=== PATIENT | female | born 1960 | race Hispanic/Latino ===

== ENCOUNTER 2018-09-16 07:27 | Day surgery (SDC) | payer BC ==
[2018-09-13 16:21] VITALS: BP 176/84
[2018-09-13 17:08] LABS: BASOPHILS % (AUTO) 0.5 % (0.0-5.0); EOSINOPHILS % (AUTO) 2.7 % (0.0-8.0); HEMATOCRIT 38.2 % (36-48); LYMPHOCYTES % (AUTO) 31.9 % (21.0-51.0); MEAN CORPUSCULAR HEMOGLOBIN 30.8 pg (27.0-33.0); MEAN CORPUSCULAR HGB CONC 33.4 g/dL (32.0-36.0); MEAN CORPUSCULAR VOLUME 92.5 fL (79-99); MONOCYTES % (AUTO) 7.9 % (3.0-13.0); NUCLEATED RED BLOOD CELLS 0.2 % (0.0-0.19); PLATELET COUNT (AUTO) 163 K/uL (130-400); RED BLOOD CELL COUNT(AUTO) 4.14 MIL/uL (4.00-5.50); RED CELL DISTRIBUTION WIDTH 13.9 % (11.0-15.5); WHITE BLOOD COUNT (AUTO) 7.1 K/uL (4.8-10.8)
[2018-09-13 17:22] LABS: CREATININE 0.7 mg/dL (0.5-1.5); POTASSIUM 4.1 mmol/L (3.5-5.1)
[~2018-09-16] VITALS: Ht 157.5 cm; Wt 130.5 kg
[2018-09-16] VITALS (15 sets, daily range): BP systolic 96–146; BP diastolic 40–75
[~2018-09-16 07:27] MED LIST: ADV250 IH; ALEN70TA10 PO; CLOB30CR5 TP; FLUT16H NASAL; IBUP-2070 PO; INSLAN SQ; LACTATED RINGERS 1000ML 1,000 ML IV SCH; LEVO125T11 PO; LIRA0.6P2 SQ; METF-446 PO; METO-391 PO; MONT10TA24 PO; OFLOXACIN OU; SIMV80TA91 PO
[2018-09-16] MEDS ORDERED: SODIUM CHLORIDE 0.9% 1000ML 1,000 ML IV ONE (08:16)
--- NOTE | 2018-09-16 08:31 | NUR ---
VALUABLES: CLOTHING, MEDICATIONS, READING GLASSES, AND CELL PHONE GIVEN TO BROTHER - BRINA SHIELDS
[2018-09-16] MEDS ORDERED: CA/D1TAB3 PO (08:40)
[2018-09-16] MEDS ORDERED: DEXA0.5E4 PO (08:40)
[2018-09-16] MEDS ORDERED: SUCCINYLCHOLINE CHLORIDE 20 MG/ML 10 ML VIAL ONE ×2 (08:50→08:51)
[2018-09-16] MEDS ORDERED: NEOSTIGMINE 5MG/5ML SYR IV ONE (08:52)
[2018-09-16] MEDS ORDERED: PROPOFOL 10 MG/ML 20ML VIAL IV ONE (08:52)
[2018-09-16] MEDS ORDERED: LIDOCAINE PF 2% 5ML ABBOJECT ONE (08:52)
[2018-09-16] MEDS ORDERED: DEXAMETHASONE SOD PHOSPHATE 10MG/ML 1ML VIAL ONE (08:52)
[2018-09-16] MEDS ORDERED: MIDAZOLAM HCL 1 MG/ML 2ML VIAL ONE (08:52)
[2018-09-16] MEDS ORDERED: ROCURONIUM 10MG/1ML SYR 10 MG/ML ML ONE (08:52)
[2018-09-16] MEDS ORDERED: ONDANSETRON HCL 4 MG/2 ML VIAL ONE (08:52)
[2018-09-16] MEDS ORDERED: GLYCOPYRROLATE 1 MG/5 ML SYRINGE ONE (08:52)
[2018-09-16] MEDS ORDERED: FENTANYL CITRATE PF 50 MCG/1 ML 2ML VIAL ONE (08:53)
--- NOTE | 2018-09-16 10:34 | NUR ---
juan pad with minimal pink discharge
--- NOTE | 2018-09-16 11:20 | NUR ---
ambulated to bathroom, voided, peripad with minimal pink discharge, tolerated well
== END 2018-09-16 11:25 | disposition home or self-care (01) ==
LOC: DAH 07:27
PROVIDERS: ATTEND Specialist
DX: N84.0 Polyp of corpus uteri (principal); E03.9 Hypothyroidism, unspecified; I10 Essential (primary) hypertension; Z98.890 Other specified postprocedural states; Z85.3 Personal history of malignant neoplasm of breast; E66.01 Morbid (severe) obesity due to excess calories; Z79.899 Other long term (current) drug therapy
CPT/HCPCS: 36415; 58120; 80048; 82948 ×2; 85025; 88305; A4351; J0330 ×2; J1100; J2001; J2250; J2405; J2704; J2710; J3010; J3490; J7030

== ENCOUNTER → 2020-03-03 | Outpatient (CLI) | payer BC ==
[~2020-03-03] MED LIST changes: +CA/D1TAB3 PO; -CLOB30CR5 TP; +DEXA0.5E4 PO; -LACTATED RINGERS 1000ML 1,000 ML IV SCH; -MONT10TA24 PO; +MONT10TA26 PO; -OFLOXACIN OU
== END | disposition home or self-care (01) ==
LOC: RAH 10:40
PROVIDERS: ATTEND Internal Medicine Gastroenterology
DX: R11.2 Nausea with vomiting, unspecified (principal); R14.0 Abdominal distension (gaseous); R19.7 Diarrhea, unspecified
CPT/HCPCS: 78264; A9541

== ENCOUNTER → 2020-05-31 | Outpatient (CLI) | payer BC ==
[~2020-05-31] MED LIST changes: -ALEN70TA10 PO; +ALEN70TA69 PO
--- NOTE | 2020-05-31 10:01 | NUR ---
BARIATRIC PRE-OP NUTRITION EDUCATION TIME: 9:20-9:50AM FLOR PROVIDED BARIATRIC PRE-OP NUTRITION EDUCATION. FLOR ESTABLISHED PROTEIN NEEDS WITH PT. FLOR ANSWERED ALL PT QUESTIONS. PT TO BEGIN PRE-OP DIET 1 WEEK PRIOR TO PROCEDURE. FLOR PROVIDED CONTACT INFORMATION TO PT FOR ADDITIONAL QUESTIONS OR CONCERNS. Addendum: 05/31/20 at [address] Amended: Links added.
== END | disposition home or self-care (01) ==
LOC: DTH 09:08
PROVIDERS: ATTEND Surgery
DX: E66.01 Morbid (severe) obesity due to excess calories (principal); E11.9 Type 2 diabetes mellitus without complications
CPT/HCPCS: 97802

== ENCOUNTER 2020-06-09 13:00 | Inpatient (IN) | payer OTHER ==
[~2020-06-09] VITALS: Ht 160 cm; Wt 127.2 kg
[~2020-06-09 13:00] MED LIST changes: -CA/D1TAB3 PO; -DEXA0.5E4 PO; -IBUP-2070 PO; -INSLAN SQ; -LEVO125T11 PO; -LIRA0.6P2 SQ; -METO-391 PO; -SIMV80TA91 PO
[2020-06-09 14:31] LABS: BASOPHILS % (AUTO) 0.6 % (0.0-5.0); EOSINOPHILS % (AUTO) 1.5 % (0.0-8.0); HEMATOCRIT 40.2 % (36-48); LYMPHOCYTES % (AUTO) 25.4 % (21.0-51.0); MEAN CORPUSCULAR HEMOGLOBIN 29.4 pg (27.0-33.0); MEAN CORPUSCULAR HGB CONC 32.8 g/dL (32.0-36.0); MEAN CORPUSCULAR VOLUME 89.5 fL (79-99); MONOCYTES % (AUTO) 7.9 % (3.0-13.0); NEUTROPHILS % (AUTO) 64.2 % (40.0-77.0); PLATELET COUNT (AUTO) 190 K/uL (130-400); RED BLOOD CELL COUNT(AUTO) 4.49 MIL/uL (4.00-5.50); RED CELL DISTRIBUTION WIDTH 13.8 % (11.0-15.5); WHITE BLOOD COUNT (AUTO) 8.1 K/uL (4.8-10.8)
[2020-06-09 14:40] LABS: CREATININE 0.8 mg/dL (0.5-1.5); POTASSIUM 4.4 mmol/L (3.5-5.1)
[2020-06-09 14:43] LABS: INR 0.98 (0.85-1.15); PARTIAL THROMBOPLASTIN TIME 28.4 SEC (26.3-35.5); PROTHROMBIN TIME 10.6 SEC (9.6-11.6)
--- NOTE | 2020-06-11 12:13 | NUR ---
ABNORMAL EKG DR. MOE MADE AWARE OF EKG. NO NEW ORDERS RECEIVED. OK TO PROCEED WITH PLANNED PROCEDURE.
[2020-06-11] MEDS ORDERED: SODIUM CHLORIDE 0.9% 1000ML 1,000 ML IV SCH (13:00)
[2020-06-11 13:53] VITALS: BP 210/92
[2020-06-11] MEDS ORDERED: LETR2.5T7 PO (15:22)
[2020-06-11] MEDS ORDERED: METO50TA18 PO (15:22)
[2020-06-11] MEDS ORDERED: CETI10CA5 PO (15:22)
[2020-06-11] MEDS ORDERED: DEXA0.5E4 PO (15:22)
[2020-06-11] MEDS ORDERED: INSU100V37 SQ (15:22)
[2020-06-11] MEDS ORDERED: LEVO137T2 PO (15:22)
[2020-06-11] MEDS ORDERED: INSU100I60 SQ (15:22)
[2020-06-11] MEDS ORDERED: LATA2.5D2 OP (15:22)
[2020-06-11] MEDS ORDERED: LOSA100T58 PO (15:22)
[2020-06-12] MEDS: CEFAZOLIN SODIUM 1 GM VIAL IVP SCH (06:00)
[2020-06-14] VITALS (23 sets, daily range): BP systolic 129–172; BP diastolic 50–82
[2020-06-14] MEDS: CEFAZOLIN SODIUM 1 GM VIAL IVP SCH ×4 (06:00→18:47)
[2020-06-14] MEDS ORDERED: SUCCINYLCHOLINE 200MG/10ML SYR ONE (07:38)
[2020-06-14] MEDS ORDERED: LIDOCAINE PF 2% 5ML ABBOJECT ONE (07:38)
[2020-06-14] MEDS ORDERED: PROPOFOL 10 MG/ML 20ML VIAL IV ONE (07:38)
[2020-06-14] MEDS ORDERED: FENTANYL CITRATE PF 50 MCG/1 ML 2ML VIAL ONE (07:38)
[2020-06-14] MEDS ORDERED: ROCURONIUM 10MG/1ML SYR 10 MG/ML ML ONE (07:38)
[2020-06-14] MEDS ORDERED: BUPIVACAINE/PF 0.5% 30ML VIAL ONE (07:58)
[2020-06-14] MEDS ORDERED: EPHEDRINE SULFATE 50 MG/ML AMPULE ONE (08:36)
[2020-06-14] MEDS ORDERED: GLYCOPYRROLATE 1 MG/5 ML SYRINGE ONE (10:58)
[2020-06-14] MEDS ORDERED: NEOSTIGMINE 5MG/5ML SYR IV ONE (10:58)
[2020-06-14] MEDS ORDERED: ONDANSETRON HCL 4 MG/2 ML VIAL ONE (11:03)
[2020-06-14] MEDS ORDERED: MEPERIDINE-PF 25 MG/ML SYG ONE ×2 (11:05→11:43)
[2020-06-14] MEDS ORDERED: ONDANSETRON HCL 4 MG/2 ML VIAL IVP PRN (11:30)
[2020-06-14] MEDS ORDERED: KETOROLAC TROMETHAMINE 30MG/ML IM PRN (11:30)
[2020-06-14] MEDS: ENOXAPARIN SODIUM 30 MG/0.3 ML SQ SCH ×2 (12:06→20:35)
[2020-06-14] MEDS ORDERED: GLUCAGON 1MG KIT 1 MG ML IM PRN (12:30)
[2020-06-14] MEDS: LACTATED RINGERS 1000ML 1,000 ML IV SCH ×2 (12:30→18:47)
[2020-06-14] MEDS ORDERED: DEXTROSE 50%-WATER 50 ML DISP.SYRIN IV PRN (12:30)
[2020-06-14] MEDS: MORPHINE SULFATE 4 MG/1ML SYG IVP PRN ×2 (13:23→17:21)
[2020-06-14] MEDS ORDERED: NON-FORMULARY MEDICATION 1 EACH (Metformin HCl 1,000 MG) PO SCH (17:00)
[2020-06-14] MEDS: METFORMIN HCL 500 MG TABLET PO SCH (17:00)
[2020-06-14] MEDS: INSULIN HUMULIN R 100 UNIT/ML 3ML SQ SCH ×2 (17:10→20:34)
[2020-06-14] MEDS: FAMOTIDINE/PF 20 MG/2 ML VIAL IV SCH (20:24)
[2020-06-14] MEDS: LEVOTHYROXINE 25 MCG TABLET PO SCH (20:31)
[2020-06-14] MEDS: MONTELUKAST SODIUM 10 MG TAB PO SCH (20:31)
[2020-06-14] MEDS ORDERED: LEVOTHYROXINE SODIUM 137 MCG PO SCH (21:00)
[2020-06-15] VITALS (7 sets, daily range): BP systolic 147–193; BP diastolic 56–76
[2020-06-15] MEDS: LACTATED RINGERS 1000ML 1,000 ML IV SCH ×3 (03:30→19:30)
[2020-06-15 03:52] LABS: BASOPHILS % (AUTO) 0.3 % (0.0-5.0); EOSINOPHILS % (AUTO) 0.1 % (0.0-8.0); HEMATOCRIT 35.4 % (36-48); LYMPHOCYTES % (AUTO) 15.3 % (21.0-51.0); MEAN CORPUSCULAR HEMOGLOBIN 29.3 pg (27.0-33.0); MEAN CORPUSCULAR HGB CONC 33.1 g/dL (32.0-36.0); MEAN CORPUSCULAR VOLUME 88.7 fL (79-99); MONOCYTES % (AUTO) 8.5 % (3.0-13.0); NEUTROPHILS % (AUTO) 75.5 % (40.0-77.0); PLATELET COUNT (AUTO) 153 K/uL (130-400); RED BLOOD CELL COUNT(AUTO) 3.99 MIL/uL (4.00-5.50); RED CELL DISTRIBUTION WIDTH 13.3 % (11.0-15.5); WHITE BLOOD COUNT (AUTO) 11.5 K/uL (4.8-10.8)
[2020-06-15 03:56] LABS: CREATININE 0.7 mg/dL (0.5-1.5)
[2020-06-15] MEDS: INSULIN HUMULIN R 100 UNIT/ML 3ML SQ SCH ×4 (07:30→21:00)
[2020-06-15] MEDS: METFORMIN HCL 500 MG TABLET PO SCH ×2 (08:00→17:00)
[2020-06-15] MEDS: FAMOTIDINE/PF 20 MG/2 ML VIAL IV SCH ×2 (09:02→19:45)
[2020-06-15] MEDS: METOPROLOL TARTRATE 50 MG TAB PO SCH (09:02)
[2020-06-15] MEDS: ENOXAPARIN SODIUM 30 MG/0.3 ML SQ SCH ×2 (09:03→19:46)
--- NOTE | 2020-06-15 10:44 | NUR ---
[facility] CM met with pt and brother in room discussed dc plans. Pt is independent prior to admission, lives at home with parents, brother, and sister in law. Pt has a walker, shower chair, nebulizer machine, uses [facility] for med, 1 small step inside the house. Feels safe to go back home, still drives, family able to assist with transportation and needs as necessary. DC plan to home once stable. CM to continue to follow up. Addendum: 06/15/20 at 1046 by OTILIO LAM LVN CM Amended: Links added.
[2020-06-15] MEDS: CEFAZOLIN SODIUM 1 GM VIAL IVP SCH ×3 (11:30→19:45)
--- NOTE | 2020-06-15 14:00 | NUR ---
NOTE SPOKE TO PATIENT AND DAUGHTER AT HER SIDE. I ASKED THEM IF A DECISION HAS BEEN MADE ABOUT PATIENT GETTING A PACEMAKER AND THEY HAVE NOT DECIDED. DR SCHMIDT CALLED ME EARLIER AND ASKED TO CHECK WITH THEM ABOUT THIS MATTER SINCE HE HAD APPROACHED THEM YESTERDAY WITH THE RECOMMENDATIONS FOR PACEMAKER PLACEMENT, JUST LIKE THEY HAD DONE ON PREVIOUS ADMISSION AND THEY HAD REFUSED AT THAT TIME WELL. FAMILY THAT WAS PRESENT YESTERDAY TOLD DR SCHMIDT THEY HAD TO DISCUSS THIS WITH THE REST OF THE FAMILY. DAUGHTER AT THE BEDSIDE SEEMS TO HAVE A LOT OF QUESTIONS WHICH I TOLD HER NEEDED TO BE ADDRESSED WITH DR SCHMIDT. SHE DOES NOT THINK PATIENT NEED PACEMAKER. INSISTS PATIENT IS EXPERIENCING SEIZURES. I TOLD HER SHE NEEDED TO BE HERE TO SPEAK TO DR SCHMIDT OR PRIMARY DOCTOR TO HAVE THESE QUESTIONS ANSWERED. Addendum: 06/15/20 at 1648 by TORRIE ARIAS RN NOTE ENTERED IN WRONG PATIENT
--- NOTE | 2020-06-15 16:30 | NUR ---
NOTE PATIENT HAS REMAINED STABLE WITHOUT DISTRESS OR SOB. BBS CLEAR. USING HER INCENTIVE SPIROMETRY. SAVANNA LUGO WITH DR MARTE HAD COME IN AND DISCHARGED AFTER DINNER BUT DR MARTE CHANGED HIS MIND AND SHE IS STAYING UNTIL TOMORROW.
[2020-06-15] MEDS: MONTELUKAST SODIUM 10 MG TAB PO SCH (19:46)
[2020-06-15] MEDS: LEVOTHYROXINE 25 MCG TABLET PO SCH (19:46)
[2020-06-15] MEDS: MORPHINE SULFATE 4 MG/1ML SYG IVP PRN (19:47)
[2020-06-15] MEDS ORDERED: LEVOTHYROXINE 112 MCG TABLET PO SCH (21:00)
[2020-06-16] MEDS: CEFAZOLIN SODIUM 1 GM VIAL IVP SCH ×2 (02:54→14:24)
[2020-06-16] MEDS: LACTATED RINGERS 1000ML 1,000 ML IV SCH ×2 (02:54→11:30)
[2020-06-16 03:36] VITALS: BP 153/67
[2020-06-16] MEDS: INSULIN HUMULIN R 100 UNIT/ML 3ML SQ SCH ×3 (05:38→16:30)
[2020-06-16 08:00] VITALS: BP 148/75
[2020-06-16] MEDS: METFORMIN HCL 500 MG TABLET PO SCH ×2 (08:00→17:00)
[2020-06-16] MEDS: FAMOTIDINE/PF 20 MG/2 ML VIAL IV SCH (08:47)
[2020-06-16] MEDS: ENOXAPARIN SODIUM 30 MG/0.3 ML SQ SCH (08:51)
[2020-06-16] MEDS: METOPROLOL TARTRATE 50 MG TAB PO SCH (08:52)
[2020-06-16 11:19] VITALS: BP 147/68
[2020-06-16 16:46] VITALS: BP 182/72
[2020-06-16] MEDS ORDERED: ACETAMINOPHEN 325 MG TAB PO ONE (17:30)
[2020-06-16] MEDS ORDERED: ACETAMINOPHEN 325 MG TAB ONE (17:33)
--- NOTE | 2020-06-16 19:00 | NUR ---
DISCHARGE ORDERS IN CHART. DISCHARGE INSTRUCTIONS COMPLETED IN THE ROOM WITH PT AND VISITOR AT SIDE. EMPHASIS ON DX, POST OP CARE ORDERED BY DR MARTE INCLUDING DIET, ACTIVITY, INCISION CARE, AND HYGIENE. PT ALSO EDUCATED TO S/S TO MONITOR FOR AND WHEN TO SEEK EMERGENCY CARE VS DIAL 911. SHE IS TO FOLLOW UP WITH DR MARTE ON THURSDAY 06/21, WILL NEED TO CALL IN AM TO SCHEDULE TIME. NEW RX FOR TYLENOL ES, GABAPENTIN, ZOFRAN, AND PANTOPRAZOLE REVIEWED WITH PT, INCLUDING ROUTE, PURPOSE, FREQUENCY, AND DURATION OF MEDICATION. PIV REMOVED BY NURSE CHRISTIANSEN. HEMOSTASIS ACHIEVED. PT WHEELED TO FRONT LOBBY BY [facility] STAFF FOR TRANSPORT HOME VIA PRIVATE CAR. PT IN STABLE CONDITION AT TIME OF DISCHARGE. ACCOMPANIED BY .
== END 2020-06-16 19:00 | disposition home or self-care (01) | DRG 621 ==
LOC: EDSTATUS 13:00 → DAHIP 06-14 06:53 → 3AH 06-14 12:44
PROVIDERS: ADMIT Surgery; ATTEND Surgery
PROC: 0DB64Z3 Excision of Stomach, Percutaneous Endoscopic Approach, Vertical (ICD-10-PCS; principal; 2020-06-14 08:11)
PROC: 0D164ZA Bypass Stomach to Jejunum, Percutaneous Endoscopic Approach (ICD-10-PCS; 2020-06-14 08:11)
DX: E66.01 Morbid (severe) obesity due to excess calories (principal); K74.60 Unspecified cirrhosis of liver; E11.9 Type 2 diabetes mellitus without complications; E03.9 Hypothyroidism, unspecified; I10 Essential (primary) hypertension; J30.2 Other seasonal allergic rhinitis; Z20.828 Contact with and (suspected) exposure to other viral communicable diseases; E78.00 Pure hypercholesterolemia, unspecified; Z68.42 Body mass index [BMI] 45.0-49.9, adult; Z90.49 Acquired absence of other specified parts of digestive tract; Z83.3 Family history of diabetes mellitus; Z82.49 Family history of ischemic heart disease and other diseases of the circulatory system
CPT/HCPCS: 36415; 43235; 71045; 80048; 82948; 85025; 85610; 85730; 86850; 86900; 86901; 93005; 94760; G0378; J0330; J0690; J1650; J1815; J2001; J2175; J2270; J2405; J2704; J2710; J3010; J3490; J7030; J7120; U0003

== ENCOUNTER 2023-07-09 08:13 | Day surgery (SDC) | payer OTHER ==
[~2023-07-09] VITALS: Ht 154.9 cm; Wt 94.3 kg
[~2023-07-09 08:13] MED LIST changes: +ALBU10.7 IH; -ALEN70TA69 PO; +LATA2.5D14 OP; +LETR2.5T7 PO; +LEVO137T2 PO; +LOSA100T59 PO; -METF-446 PO; +METO50TA18 PO; -MONT10TA26 PO
[2023-07-09 09:00] VITALS: BP 149/61; PULSE 60; RESP 15
[2023-07-09] MEDS ORDERED: PROPOFOL 10 MG/ML 20ML VIAL IV ONE (09:59)
[2023-07-09] MEDS ORDERED: HYDR25TA PO (10:01)
[2023-07-09] MEDS ORDERED: SODIUM TETRADECYL SULFATE 30 MG/ML 2 ML VIAL IV ONE (10:30)
== END 2023-07-09 10:53 | disposition home or self-care (01) ==
LOC: DAH 08:13
PROVIDERS: ATTEND Surgery
DX: K21.9 Gastro-esophageal reflux disease without esophagitis (principal); R13.10 Dysphagia, unspecified; I10 Essential (primary) hypertension; E11.9 Type 2 diabetes mellitus without complications; Z79.899 Other long term (current) drug therapy; Z98.84 Bariatric surgery status; Z98.890 Other specified postprocedural states; Z90.49 Acquired absence of other specified parts of digestive tract; Z82.49 Family history of ischemic heart disease and other diseases of the circulatory system; Z83.3 Family history of diabetes mellitus
CPT/HCPCS: 82948; 43236; J2704; J3490; A4620; A4215 ×2; A4223; A7002; A4222; A4221; A4663; J7030; A4606

== ENCOUNTER 2023-08-06 06:40 | Day surgery (SDC) | payer OTHER ==
[~2023-08-06] VITALS: Ht 154.9 cm; Wt 94.3 kg
[~2023-08-06 06:40] MED LIST changes: +HYDR25TA PO
[2023-08-06 07:10] VITALS: BP 152/46; PULSE 50; RESP 16
[2023-08-06] MEDS ORDERED: PHENYLEPHRINE HCL 10 MG/ML 1ML VIAL IV ONE (07:40)
[2023-08-06] MEDS ORDERED: SODIUM TETRADECYL SULFATE 30 MG/ML 2 ML VIAL IV ONE (08:00)
[2023-08-06] MEDS ORDERED: PROPOFOL 10 MG/ML 20ML VIAL IV ONE ×2 (08:08→08:09)
[2023-08-06] MEDS ORDERED: GLYCOPYRROLATE 0.2 MG/ML 5 ML VIAL ONE (08:09)
[2023-08-06] MEDS ORDERED: CETI10TA57 PO (08:10)
[2023-08-06] MEDS ORDERED: METO25TA6 PO (08:10)
[2023-08-06] MEDS ORDERED: LEVO112C4 PO (08:10)
[2023-08-06] MEDS ORDERED: FENTANYL CITRATE PF 50 MCG/1 ML 2ML VIAL ONE (08:10)
[2023-08-06] MEDS ORDERED: 0.9%NACL 1000ML 1,000 ML IV ONE (09:10)
[2023-08-06 09:27] VITALS: BP 138/53; PULSE 60; RESP 16
== END 2023-08-06 08:53 | disposition home or self-care (01) ==
LOC: DAH 06:40 → ENDO 06:40
PROVIDERS: ATTEND Surgery
DX: K21.9 Gastro-esophageal reflux disease without esophagitis (principal); R13.10 Dysphagia, unspecified; J45.909 Unspecified asthma, uncomplicated; I10 Essential (primary) hypertension; E07.9 Disorder of thyroid, unspecified; E11.9 Type 2 diabetes mellitus without complications; Z98.84 Bariatric surgery status; Z82.49 Family history of ischemic heart disease and other diseases of the circulatory system; Z80.9 Family history of malignant neoplasm, unspecified; Z83.3 Family history of diabetes mellitus; Z83.79 Family history of other diseases of the digestive system; Z79.84 Long term (current) use of oral hypoglycemic drugs; Z79.51 Long term (current) use of inhaled steroids; Z79.890 Hormone replacement therapy; Z79.899 Other long term (current) drug therapy; Z98.890 Other specified postprocedural states
CPT/HCPCS: 82948; 43236; J3010; J7030 ×2; J2704; J3490 ×2; J2371; A4620; A4215 ×2; A4223; A4657; A7002; A4222; A4221; A4663; A4216; A4606

== ENCOUNTER 2023-09-20 10:42 | Emergency (ER) | payer OTHER ==
[~2023-09-20] VITALS: Ht 160 cm; Wt 89.8 kg
[~2023-09-20 10:42] MED LIST changes: +CETI10TA57 PO; +LEVO112C4 PO; -LEVO137T2 PO; +METO25TA6 PO; -METO50TA18 PO
[2023-09-20] MEDS ORDERED: IBUP-2077 PO (11:39)
[2023-09-20] MEDS ORDERED: CLIN-141 PO (11:39)
[2023-09-20] MEDS ORDERED: KETOROLAC 60 MG VIAL (30MG/ML) IM ONE (12:00)
[2023-09-20 12:29] VITALS: BP 165/70; PULSE 60; RESP 18; O2SAT 99
== END 2023-09-20 12:30 | disposition home or self-care (01) ==
LOC: EDH 10:42
DX: K02.9 Dental caries, unspecified (principal); K08.89 Other specified disorders of teeth and supporting structures; Z79.51 Long term (current) use of inhaled steroids; Z79.811 Long term (current) use of aromatase inhibitors; Z79.899 Other long term (current) drug therapy
CPT/HCPCS: 99283; 96372; J1885

== ENCOUNTER → 2024-03-20 | Outpatient (CLI) | payer OTHER ==
[~2024-03-20] MED LIST changes: +CLIN-141 PO; +IBUP-2077 PO
== END | disposition home or self-care (01) ==
LOC: RAH 11:44
PROVIDERS: ATTEND Family Medicine
DX: I70.0 Atherosclerosis of aorta (principal); R05.1 Acute cough; M47.815 Spondylosis without myelopathy or radiculopathy, thoracolumbar region; M41.84 Other forms of scoliosis, thoracic region
CPT/HCPCS: 71046

== ENCOUNTER → 2024-10-07 | Outpatient (CLI) | payer OTHER ==
--- NOTE | 2024-10-10 09:27 | HMCSR ---
APPROVED REPORT EXAM: Two-dimensional and M-mode echocardiogram with Doppler and color Doppler. INDICATION ICD: R01.1 Cardiac murmur, unspecified 2D Dimensions RVDd5.1 cmLVEF(%)66.9 (>50%)LVED Vol(simp.)119.0 mL IVSd1.0 (0.7-1.1cm)FS(%)37 %LVES Vol(simp.)46.0 mL LVDd4.4 (3.8-5.6cm)Ao Root(2D)3.0 (2.0-3.7cm)LVEF(%, simp.)61 % PWd1.0 (0.7-1.1cm)LVOT diam2.0 (1.8-2.4cm)LA ESV INDEX (BP)45.81 mL/m2 LVDs2.8 (2.5-4.0cm)IVC diam1.7 cm Aortic Valve AoV Vmax2.3 m/Vj Peak GR21.0 mmHgLVOT Vmax1.5 m/s AoV VTI0.5 mAo Mean GR10.3 mmHgLVOT VTI0.36 m ANN (VMAX)2.0 cm2AVA (VTI) 2.0 cm2 Mitral Valve MV E Zqsh453.4 cm/sDECEL Npil996 ms MV A Wogx856.5 cm/sP 1/2 T57 ms E/A ratio1.1MVA (PHT)3.8 cm2 TDI E/E' Tsxukj97.2E/E' Ivekziy73.5 Pulmonary Valve PV Vmax1.3 m/sPV VTI0.32 mPV Mean GR4 mmHg PV Peak GR6.8 mmHg Tricuspid Valve TR Vmax2.8 m/sRAP (EST) 3 dnSfYGDU03.2 mmHg TR Peak GR31.2 mmHg Left Ventricle The left ventricle structure and function is normal. There is normal LV segmental wall motion. There is normal left ventricular wall thickness. LVEF is 60-65%. Grade 2 diastolic dysfunction. Right Ventricle The right ventricle is dilated. The right ventricular systolic function is normal. Atria The left atrium is moderately dilated. The atrial septum is aneurysmal. The right atrium is dilated. Aortic Valve Aortic valve is trileaflet. Aortic valve leaflets are sclerotic but open well. No aortic regurgitatio n is present.. There is no aortic valvular stenosis. Mitral Valve Mitral valve leaflets are mildly sclerotic but open well. Mitral regurgitation is trace. There is no mitral valve stenosis. Tricuspid Valve The tricuspid valve leaflets appear normal. There is mild tricuspid regurgitation. Right ventricular systolic pressure is estimated at 30-40 mmHg. Pulmonic Valve Pulmonic valve is not well visualized. There is trace pulmonic valvular regurgitation. Great Vessels The aortic root is normal in size. The IVC is normal in size and collapses >50% with inspiration. Pericardium No pericardial effusion. Other Information Quality : Average Conclusion The left ventricle structure and function is normal.LVEF is 60-65% with normal LV segmental wall tyler on. Stage II diastolic dysfunction. The right ventricle is dilated with a preserved systolic function by TAPSE. The left atrium is moderately dilated. No hemodynamically significant valvular abnormalities. No pericardial effusion.
--- NOTE | 2024-10-10 09:29 | HMCSR ---
APPROVED REPORT Bilateral Lower Extremity Venous Study for Venous Competence., DVT. Indications i87.2 Vein Imaging CFV (R): Normal flow, augmentation and compression. No evidence of DVT. 10.8mm 1222ms of reflux. SFJ (R): Normal flow, augmentation and compression. No evidence of DVT. FEM (R): Normal flow, augmentation and compression. No evidence of DVT. POP (R): Normal flow, augmentation and compression. No evidence of DVT. DFV (R): Normal flow, augmentation and compression. No evidence of DVT. PTV (R): Normal flow, augmentation and compression. No evidence of DVT. Peroneals (R): Normal flow, augmentation and compression. No evidence of DVT. CFV (L): Normal flow, augmentation and compression. No evidence of DVT. 10.4mm 1139ms of reflux. SFJ (L): Normal flow, augmentation and compression. No evidence of DVT. FEM (L): Normal flow, augmentation and compression. No evidence of DVT. POP (L): Normal flow, augmentation and compression. No evidence of DVT. DFV (L): Normal flow, augmentation and compression. No evidence of DVT. PTV (L): Normal flow, augmentation and compression. No evidence of DVT. Peroneals (L): Normal flow, augmentation and compression. No evidence of DVT. Technologist Impression RGSV Junction 7.4mm 2072ms thigh 5.2mm 0.0ms Knee 3.4mm 0.0ms Calf 1.8mm 0.0ms RSSV Prox 3.0mm 0.0ms Mid 3.8mm 0.0ms (Cluster of veins) LGSV Junction 5.2mm 217ms thigh 3.6ms 0.0ms knee 3.6mm 0.0ms calf 2.4mm 0.0ms LSSV Prox 2.0mm 0.0ms Mid 1.8ms 0.0ms Conclusion Deep veins of bilateral lower extremities appear patent and compressible without thrombus. Venous reflux seen in RCFV and LCFV Venous insufficiency seen in RGSV Conclusion Deep veins of bilateral lower extremities appear patent and compressible without thrombus. Venous reflux seen in RCFV and LCFV Venous insufficiency seen in RGSV
--- NOTE | 2024-10-10 09:30 | HMCSR ---
APPROVED REPORT Laterality: Bilateral Indications Claudication: , PAD VELOCITY AND DOPPLER WAVEFORM ANALYSIS COUNTER CLERK FARM EQUIPMENT PARTS (R) 169.7cm/sec, Triphasic, COUNTER CLERK FARM EQUIPMENT PARTS (L) 194.2cm/sec, Triphasic, Prof Fem Art. (R) 102.8cm/sec, Triphasic, Prof Fem Art. (L) 76.0cm/sec, Triphasic, Fem Art Prox. (R) 118.7cm/sec, Triphasic, Fem Art Prox. (L) 131.1cm/sec, Triphasic, Fem Art Mid. (R) 138.0cm/sec, Triphasic, Fem Art Mid. (L) 138.0cm/sec, Triphasic, Fem Art Dist (R) 114.6cm/sec, Triphasic, Fem Art Dist. (L) 74.2cm/sec, Triphasic, Pop Art(AK) (R) 127.0cm/sec, Triphasic, Pop Art (AK) (L) 97.2cm/sec, Triphasic, Pop Art (Fossa)(R) 80.1cm/sec, Triphasic, Pop Art (Fossa) (L) 75.0cm/sec, Biphasic, Pop Art(BK) (R) 117.3cm/sec, Triphasic, Pop Art (BK) (L) 90.5cm/sec, Biphasic, GARDENER Prox. (R) 110.0cm/sec, Biphasic, GARDENER Prox. (L) 97.2cm/sec, Biphasic, GARDENER Mid. (R) 107.7cm/sec, Biphasic, GARDENER Mid. (L) 97.2cm/sec, Biphasic, GARDENER Dist. (R) 100.7cm/sec, Biphasic, GARDENER Dist. (L) 57.9cm/sec, Biphasic, Per Art Prox. (R) 42.1cm/sec, Monophasic, Per Art Prox. (L) 55.5cm/sec, Biphasic, Per Art Mid. (R) 44.2cm/sec, Monophasic, Per Art Mid. (L) 42.6cm/sec, Biphasic, Per Art Dist. (R) 36.6cm/sec, Monophasic, Per Art Dist. (L) 41.5cm/sec, Biphasic, CURLY Prox. (R) 115.8cm/sec, Biphasic, CURLY Prox. (L) 81.6cm/sec, Biphasic, CURLY Mid. (R) 76.7cm/sec, Biphasic CURLY Mid. (L) 85.6cm/sec, Biphasic, CURLY Dist. (R) 150.1cm/sec, Biphasic, CURLY Dist. (L) 124.2cm/sec, Biphasic, Conclusion Monophsaic waveforms in the Right peroneal artery suggestive of >70% stenosis. Conclusion Monophsaic waveforms in the Right peroneal artery suggestive of >70% stenosis.
== END | disposition home or self-care (01) ==
LOC: SHCH 10:11
PROVIDERS: ATTEND Student in an Organized Health Care Education/Training Program
DX: I08.3 Combined rheumatic disorders of mitral, aortic and tricuspid valves (principal); I87.2 Venous insufficiency (chronic) (peripheral); I73.9 Peripheral vascular disease, unspecified; R01.1 Cardiac murmur, unspecified; I87.1 Compression of vein
CPT/HCPCS: 93306; 93925; 93970